=== PATIENT | female | born 1990 | race Two or more races ===

== ENCOUNTER 2020-12-11 03:25 | Inpatient (IN) | payer MEDICAID ==
[~2020-12-11] VITALS: Ht 167.6 cm; Wt 127.9 kg
[2020-12-11] MEDS ORDERED: BUTORPHANOL TARTRATE 2 MG/1 ML VIAL IV PRN (04:00)
[2020-12-11] MEDS ORDERED: PROMETHAZINE HCL 25 MG/ML 1ML IM PRN (04:00)
[2020-12-11] MEDS ORDERED: LACT. RINGERS/OXYTOCIN 20UNITS 500 ML IV ONE ×2 (04:00→04:30)
[2020-12-11] MEDS ORDERED: PENICILLIN G POT 5MIL/D5 50ML 50 ML IV ONE (04:00)
[2020-12-11] MEDS ORDERED: DERMOPLAST 60ML BOTTLE TOP PRN (04:00)
[2020-12-11] MEDS ORDERED: WITCH HAZEL-GLYCERIN PAD TOP PRN (04:00)
[2020-12-11] MEDS ORDERED: PHISODERM TOP SOLN 240ML BTL TOP PRN (04:00)
[2020-12-11] MEDS ORDERED: LIDOCAINE 2%HCL (LOCAL ANESTH.) INJ 20ML MDV IJ PRN (04:00)
[2020-12-11] MEDS: LACTATED RINGER'S 1,000 ML IV SCH ×2 (04:23→12:49)
[2020-12-11 05:01] LABS: Urine Bacteria FEW /hpf (None Seen); Urine Blood 1+ /uL (Negative); Urine Mucus FEW (None Seen); Urine Specific Gravity 1.023 (1.001-1.035); Urine WBC 26 /hpf (0 - 5); Urine WBC Clumps PRESENT /hpf (None Seen)
[2020-12-11 05:09] LABS: Albumin 2.6 g/dL (3.4-5.0); Calcium 8.4 mg/dL (8.5-10.1); Potassium 3.6 mmol/L (3.5-5.1)
[2020-12-11 05:10] LABS: Basophils # (auto) 0.1 10 ^3/uL (0-0.2); Basophils % (auto) 0.5 % (0.0-2.0); Eosinophils # (auto) 0 10 ^3/uL (0-0.8); Eosinophils % (auto) 0.4 % (0.0-7.0); Hematocrit 39.7 % (36.0-46.0); Hemoglobin 13.8 g/dL (12.2-16.2); Lymphocytes # (auto) 1.9 10 ^3/uL (0.4-5.4); Mean Corpuscular Hemoglobin 29.4 pg (28.0-32.0); Mean Corpuscular Hgb Conc. 34.6 g/dL (32.0-36.0); Mean Corpuscular Volume 85.1 fL (80.0-100.0); Monocytes # (auto) 0.6 10 ^3/uL (0-1.3); Neutrophils # (auto) 7.3 10 ^3/uL (1.6-8.6); Neutrophils % (auto) 74.1 % (37.0-80.0); Red Blood Cells 4.67 10^6/uL (4.0-5.20); Red Cell Distribution Width 13.7 % (11.8-14.3); White Blood Cell 9.9 10^3/uL (4.4-10.8)
[2020-12-11 05:11] LABS: Alcohol, Urine < 3.0 mg/dL (0-10); Amphetamine Screen, Urine NEGATIVE (NEGATIVE); Barbiturate Scree,Urine NEGATIVE (NEGATIVE); Benzodiazephine Screen, Urine NEGATIVE (NEGATIVE); Cannabinoid Screen, Urine NEGATIVE (NEGATIVE); Cocaine Screen, Urine NEGATIVE (NEGATIVE); Opiate Scree,Urine NEGATIVE (NEGATIVE); Phencyclidine Screen, Urine NEGATIVE (NEGATIVE)
[2020-12-11 05:12] LABS: Bilirubin, Total 0.3 mg/dL (0.2-1.0); Total Protein 6.9 g/dL (6.4-8.2)
[2020-12-11 05:22] LABS: INR 0.93 (0.9-1.15)
[2020-12-11] MEDS ORDERED: PREN-96 PO (07:21)
[2020-12-11] MEDS ORDERED: PENICILLIN G POTASSIUM 2,500,000 UNITS in D5W 5% 50 ML IV SCH (08:00)
[2020-12-11] MEDS ORDERED: LACT. RINGERS/OXYTOCIN 20UNITS 1,000 ML IV SCH (09:30)
[2020-12-11] MEDS: IBUPROFEN 600 MG TAB PO PRN ×2 (14:33→22:59)
[2020-12-11 15:00] VITALS: BP 110/56
[2020-12-11 19:00] VITALS: BP 110/63
[2020-12-11 23:10] VITALS: BP 119/63
[2020-12-12 03:00] VITALS: BP 117/69
[2020-12-12 06:45] VITALS: BP 133/74
[2020-12-12 07:07] LABS: RPR Non Reactive (Non Reactive)
[2020-12-12 10:50] VITALS: BP 115/68
[2020-12-12 15:30] VITALS: BP 122/70
[2020-12-12 19:01] VITALS: BP 111/62
[2020-12-12 23:11] VITALS: BP 111/72
[2020-12-13 03:00] VITALS: BP 120/66
[2020-12-13 06:48] VITALS: BP 125/78
[2020-12-13 08:46] VITALS: BP 125/78
== END 2020-12-13 14:50 | disposition home or self-care (01) | DRG 560 ==
LOC: LDRP 03:25 → OBSVTOIN 04:00 → LDRP 04:28
PROVIDERS: ADMIT Obstetrics & Gynecology; ATTEND Obstetrics & Gynecology
PROC: 10E0XZZ Delivery of Products of Conception, External Approach (ICD-10-PCS; principal; 2020-12-11)
DX: O99.824 Streptococcus B carrier state complicating childbirth (principal); Z20.822 Contact with and (suspected) exposure to COVID-19; O70.0 First degree perineal laceration during delivery; Z37.0 Single live birth; Z3A.39 39 weeks gestation of pregnancy
CPT/HCPCS: 36415; 59025; 59409; 80053; 80307; 81001; 81002; 85025; 85610; 85730; 86592; 86850; 86900; 86901; 87426; 94760; 96360; 96361; 96365; 96366; G0378; J2540; J2590; J7060

== ENCOUNTER 2024-07-18 20:13 | Emergency (ER) | payer MEDICAID ==
[~2024-07-18] VITALS: Ht 167.6 cm; Wt 125.5 kg
[~2024-07-18 20:13] MED LIST: PREN-96 PO
[2024-07-18 23:32] VITALS: BP 120/73; TEMP 98.5
--- NOTE | 2024-07-18 23:54 | ED.PDOC ---
HPI Comments 33 YEAR OLD FEMALE PRESENTS TO ER WITH COMPLAINTS OF LACERATION X 1 DAY. PATIENT REPORTS THAT SHE SLIPPED ON A TOWEL IN HER REST ROOM AND HIT THE LEFT SIDE OF HER HEAD/FACE AGAINST THE COUNTER TOP IN FRONT OF HER AND SUSTAINED LACERATION TO LEFT UPPER EYELID AT 7:30 P.M. PRIOR TO ARRIVAL TO ER. DENIES LOC. PATIENT CURRENTLY COMPLAINTS OF 3/10 LEFT SIDED HEADACHE, DENYING ANY OTHER CURRENT PAIN. DENIES USE OF MEDICATIONS FOR CURRENT SYMPTOMS AND PRESENTS TO ER AMBULATORY ON ARRIVAL, ALERT AND ORIENTED X4, IN NO DISTRESS. DENIES N/V, NUMBNESS/TINGLING, VISION CHANGES, CONFUSION, DIZZINESS, USE OF BLOOD THINNERS, NECK PAIN OR ANY FURTHER SYMPTOMS/COMPLAINTS Chief Complaint: Laceration Time Seen by MD: 21:32 Primary Care Provider: [facility] Reviewed Notes: Nurses Notes, Medications, Allergies Allergies: Coded Allergies: NO KNOWN ALLERGIES (Unverified , 12/11/20) Home Meds Reported Medications Vit W/ Ferrous Fumara ( One Daily) Daily Tab, 1 TAB PO DAILY, #90 TAB 3 Refills 12/11/20 Information Source: Patient Mode of Arrival: Ambulatory Complexity: Simple Last Tetanus: UTD Laceration Length (cm): 3 Skin Type: Linear (3 CM SUPERFICIAL LACERATION) Past Medical History PAST MEDICAL HISTORY: Denies Surgical History: Denies all surgeries 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 Family History Family History: Unknown Social History Smoker: Non-Smoker Alcohol: Denies ETOH Use Drugs: Denies Drug Use Lives In: Home Constitutional: denies: chills, diaphoresis, fatigue, fever, malaise, sweats, weakness, others EENTM: denies: blurred vision, double vision, ear bleeding, ear discharge, ear drainage, ear pain, ear ringing, eye pain, eye redness, hearing loss, mouth pain, mouth swelling, nasal discharge, nose bleeding, nose congestion, nose pain, photophobia, tearing, throat pain, throat swelling, voice changes, others Respiratory: denies: cough, hemoptysis, orthopnea, SOB at rest, shortness of breath, SOB with excertion, stridor, wheezing, others Cardiovascular: denies: chest pain, dizzy spells, diaphoresis, Dyspnea on exertion, edema, irregular heart beat, left arm pain, lightheadedness, palpitations, PND, syncope, others Gastrointestinal: denies: abdomen distended, abdominal pain, blood streaked bowels, constipated, diarrhea, dysphagia, difficulty swallowing, hematemesis, melena, nausea, poor appetite, poor fluid intake, rectal bleeding, rectal pain, vomiting, others Genitourinary: denies: abnormal vagina bleeding, burning, dyspareunia, dysuria, flank pain, frequency, hematuria, incontinence, pain, , vagina discharge, urgency, others Neurological: reports: others ( STATED IN HPI) Musculoskeletal: denies: back pain, gout, joint pain, joint swelling, muscle pain, muscle stiffness, neck pain, others Integumetry: reports: others ( STATED IN HPI) Allergic/Immunocompromised: denies: Difficulty Healing, Frequent Infections, Hives, Itching, others Hematologic/Lymphatic: denies: anemia, blood clots, easy bleeding, easy bruising, swollen glands, others Endocrine: denies: excessive hunger, excessive sweating, excessive thirst, excessive urination, flushing, intolerance to cold, intolerance to heat, unexplained weight gain, unexplained weight loss, others Psychiatric: denies: anxiety, bipolar disorder, depression, hopeless, panic disorder, schizophrenia, sleepless, suicidal, others Physical Exam General Appearance: No Apparent Distress, Obese HEENT: PERRL/EOMI, Pharynx Normal, TMs Normal, Other (3 CM SUPERFICIAL LACERATION NOTED TO LEFT UPPER EYELID. MILD SWELLING/TTP/ERYTHEMA LOCALIZED TO WOUND EDGES. NO RACCOON EYES/FURTHER SKIN CHANGES NOTED.) Neck: Full Range of Motion, Non-Tender, Normal Respiratory: Chest Non-Tender, Lungs Clear, No Accessory Muscle Use, No Respiratory Distress, Normal Breath Sounds Cardiovascular: No Murmur, No Gallop, Regular Rate/Rhythm Breast Exam: Deferred Gastrointestinal: NOT DONE Genitalia: Deferred Pelvic: Deferred Rectal: Deferred Extremities: Normal capillary refill, Normal range of motion Neurologic: Alert (GCS 15), community liaison II-XII nml as Tested, No Motor Deficits, Normal Affect, Normal Mood, No Sensory Deficits Cerebellar Function: Normal Reflexes: Normal Skin: Dry, Warm Peripheral Pulses: 2+ carotid (R), 2+ carotid (L), 2+ Radial (R), 2+ Radial (L), 2+ Brachial (R), 2+ Brachial (L) Lymphatic: No Adenopathy Was a procedure done? Was a procedure done?: No Sedation Sedation?: No Differential diagnosis Generic Laceration: Fracture, Retained Foriegn Body, Neurovascular Injury Differential Diagnosis: Other (SUBDURAL HEMATOMA, SUBARACHNOID HEMORRHAGE) X-Ray, Labs, Meds, VS Vital Signs Date Time Temp Pulse Resp B/P (MAP) Pulse Ox O2 Delivery O2 Flow Rate FiO2 07/18/24 23:32 98.5 74 16 120/73 (89) 100 98.5 07/18/24 20:35 98.3 77 20 143/86 (105) 100 WOUND CLEANING PERFORMED AT BEDSIDE DERMABOND AND STERI-STRIPS APPLIED TO SUPERFICIAL LACERATION WITHOUT COMPLICATION WOUND CARE/CLEANING DISCUSSED AND ADVISED PATIENT REPORTED IMPROVEMENT SYMPTOMS AND IN NO DISTRESS PRIOR TO DISCHARGE ADVISED ON REST/NO STRENUOUS ACTIVITY AND ALTERNATE ICE ON/OFF NEEDED FOR PAIN ADVISED TO FOLLOW UP WITH PCP IN 1-2 DAYS PATIENT ALERT AND ORIENTED X4 PRIOR TO DISCHARGE. PATIENT VERBALIZED UNDERSTANDING AND AGREEABLE WITH CURRENT PLAN OF CARE ADVISED TO RETURN TO ER IMMEDIATELY IF SYMPTOMS WORSEN Time of 1ST Reevaluation: 23:52 Reevaluation 1ST: N/A Patient Education/Counseling: Diagnosis, Treatment, Prognosis, Need For Follow Up Family Education/Counseling: No Family Present Departure 1 Departure Time of Disposition: 00:02 Impression: Primary Impression: Superficial laceration of face Disposition: 01 HOME / SELF CARE / HOMELESS Condition: Stable Discharged With: Self Critical Care Note Critical Care Time?: No Stability Stability form required: No Heart Score Heart Score: Heart Score Response (Comments) Value History N/A 0 EKG N/A 0 Age N/A 0 Risk Factors N/A 0 Troponin N/A 0 Total 0 JUANCARLOS HOOPER Jul 18, 2024 23:54
[2024-07-19 00:03] VITALS: PULSE 74; RESP 16; O2SAT 100
== END 2024-07-19 00:04 | disposition home or self-care (01) ==
LOC: ER 20:13
DX: S01.112A Laceration without foreign body of left eyelid and periocular area, initial encounter (principal); S01.81XA Laceration without foreign body of other part of head, initial encounter; W01.198A Fall on same level from slipping, tripping and stumbling with subsequent striking against other object, initial encounter; Y93.89 Activity, other specified; Y92.89 Other specified places as the place of occurrence of the external cause; Y99.8 Other external cause status
CPT/HCPCS: 12013